=== PATIENT | female | born 1995 | race Caucasian/White ===

== ENCOUNTER 2017-08-15 18:56 | Day surgery (SDC) | payer OTHER ==
[2017-08-15 19:27] VITALS: BMI 30.9
[2017-08-15] MEDS ORDERED: Promethazine HCl 25 MG/ML VIAL IM/IV PRN (19:42)
--- NOTE | 2017-08-15 19:44 | PDOC.LDHP ---
Labor and Delivery H&P Chief complaint: other (spotting at 31 weeks 3 days, nausea) HPI: [address] mane here for spotting after wiping with tissue paper. No recent sex or trauma. No real contractions. No dysuria. Some nausea but no emesis. Denies fevers. no HAs, no fevers. Review of Systems: Complete ROS done and as per HPI Current gestational age (weeks): 31 (3 days) Due date: 10/12/17 Dating criteria: last menstrual period Grav: 1 Para: 0 Current complications: none Abnormal US findings: No Current medications: none Previous surgical history: none Allergies/Adverse Reactions: Allergies Allergy/AdvReac Type Severity Reaction Status Date / Time Penicillins Allergy Verified 08/15/17 19:29 - Physical Exam Vital signs reviewed and normal: yes General: NAD Heart: RRR Lungs: CTAB Abdomen: gravid Extremeties: no edema FHT: category 1 [place] contractions every: irritability - Assessment Spotting at 31 weeks, nausea. - Plan Plan: observation in L&D (I have ordered CMP and LR 1 liter bolus. Cervix check pending. Phenergan prn. No acute distress at this time. Follow. Monitors.)
[2017-08-15] MEDS ORDERED: Lactated Ringer's 1,000 ML IV SCH (20:00)
[2017-08-15 20:38] LABS: ALT (SGPT) 17 U/L (8-55); AST (SGOT) 20 U/L (5-34); Albumin 3.5 g/dL (3.5-5.0); Alkaline Phosphatase 95 U/L (40-150); Anion Gap 13 mmol/L (10-20); BUN (Urea Nitrogen) 6 mg/dL (7.0-18.7); Bilirubin, Total 1.6 mg/dL (0.2-1.2); Calc. Creatinine Clearance 182 mL/min (70-130); Carbon Dioxide 21 mmol/L (22-29); Chloride 105 mmol/L (98-107); Estimated GFR-MDRD Greater than 90; Globulin 3.2 g/dL (2.4-3.5); Glucose 81 mg/dL (70-105); Potassium 3.8 mmol/L (3.5-5.1); Protein, Total 6.7 g/dL (6.0-8.3); Sodium 135 mmol/L (136-145)
--- NOTE | 2017-08-15 20:45 | PDOC.EVN ---
Event Note - Event Note Event Note: CMP wnl. OK for outpatient care after liter complete
== END 2017-08-15 21:05 | disposition home or self-care (01) ==
LOC: L&D/OP 18:56
PROVIDERS: ATTEND Obstetrics & Gynecology
DX: O26.853 Spotting complicating pregnancy, third trimester (principal); O99.89 Other specified diseases and conditions complicating pregnancy, childbirth and the puerperium; R11.0 Nausea; Z3A.31 31 weeks gestation of pregnancy; Z88.0 Allergy status to penicillin
CPT/HCPCS: 80053

== ENCOUNTER 2017-09-13 13:04 | Inpatient (IN) | payer OTHER ==
[2017-09-13 13:29] VITALS: BMI 31.7
--- NOTE | 2017-09-13 14:14 | PDOC.LDHP ---
Labor and Delivery H&P Chief complaint: contractions HPI: 21 yo WF presents c/o UCs since 9:30 AM. Denies SROM or bleeding. Current gestational age (weeks): 35 Due date: 10/12/17 Grav: 1 Para: 0 OB History Details: PNC with Dr. Gil w/o complications Current complications: none Abnormal US findings: No Past Medical History: none Current medications: pre- vitamins Previous surgical history: other (T&A, tubes in ears) Allergies/Adverse Reactions: Allergies Allergy/AdvReac Type Severity Reaction Status Date / Time Penicillins Allergy Rash Verified 09/13/17 13:29 Social history: none - Physical Exam Vital signs reviewed and normal: yes General: breathing through contractions Lungs: nonlabored breathing Abdomen: gravid Extremeties: trace edema FHT: category 1 [place] contractions every: UCs q 5 mins - Vaginal Exam cm dilated: 1 Effacement: 75% Station: -1 - OB Labs Blood type: A RH: positive Antibody Screen: negative HIV: negative RPR: negative HEPSAg: negative 1 hour GCT: negative GBS: unknown Rubella: immune - Assessment 35 6/7 week IUP with UCs - Plan Plan: other (Hydrate and sedate Watch carefully)
[2017-09-13] MEDS ORDERED: Lactated Ringer's 1,000 ML IV SCH (14:15)
[2017-09-13] MEDS: Lactated Ringer's 1,000 ML IV SCH ×3 (14:35→23:04)
[2017-09-13] MEDS: Butorphanol Tartrate 1 MG/ML VIAL SLOW IVP PRN ×3 (14:46→18:28)
[2017-09-13] MEDS ORDERED: Betamet Acet/Betamet Na Ph 30 MG/5 ML VIAL ONE (15:42)
[2017-09-13] MEDS ORDERED: Ibuprofen 800 MG TAB PO PRN (15:48)
[2017-09-13] MEDS ORDERED: HYDROcodone/Acetaminophen 5/325 mg Tablet PO PRN ×2 (15:48)
[2017-09-13] MEDS ORDERED: Lidocaine 1% (PF) 30 ML VIAL SC PRN (15:48)
--- NOTE | 2017-09-13 15:48 | PDOC.EVN ---
Event Note - Event Note Event Note: Continues to c/o contractions despite IV and stadol. SVE by me now /-1, vtx. UCs q 3-5 mins seen. A: PTL at 35 6/7 weeks. Plan: Steroids for FLM, Ancef for unknown GBS status, and trial of Procardia 20 mg Q 6 hrs
[2017-09-13] MEDS ORDERED: Promethazine HCl 25 MG/ML VIAL IM PRN ×2 (15:49→20:11)
[2017-09-13] MEDS ORDERED: Zolpidem Tartrate 5 MG TAB PO PRN (15:49)
[2017-09-13] MEDS ORDERED: Betamet Acet/Betamet Na Ph 30 MG/5 ML VIAL IM SCH (16:00)
[2017-09-13 16:26] LABS: Hemoglobin 10.8 g/dL (12.0-16.0); Mean Corpuscular HGB CONC 34.9 g/dL (32.0-36.0); Mean Corpuscular Volume 85.9 fL (78.0-98.0); Mean Platelet Volume 8.2 fL (7.4-10.4); Platelet Count 235 thou/uL (130-400); White Blood Cell (WBC) Count 11.3 thou/uL (4.8-10.8)
[2017-09-13] MEDS: CEFAZOLIN 1 GM in Sodium Chloride 0.9% 100 ML IVPB SCH (16:52)
[2017-09-13] MEDS ORDERED: NIFEdipine 10 MG CAP PO SCH (17:00)
[2017-09-13 17:03] LABS: HBSAg Index 0.18 S/CO (0-0.99); Hep B Surf Ag Non-Reactive S/CO (NonReactive); Syphilis Antibody Nonreactive (Nonreactive); Syphilis Antibody Index 0.05 S/CO (<1.00 Non-Reactive)
[2017-09-13] MEDS: Ondansetron HCl/PF 4 MG/2 ML Vial IVP PRN (17:49)
[2017-09-13] MEDS ORDERED: DISCONTINUE ALL PREVIOUS NARCOTICS FS SCH (18:15)
[2017-09-13] MEDS ORDERED: Butorphanol Tartrate 1 MG/ML VIAL ONE (18:27)
--- NOTE | 2017-09-13 19:45 | PDOC.EVN ---
Event Note - Event Note Event Note: Crying with contractions. SVE per Labor RN is 4/80/-1, vtx. FHTs are reassuring. UCs seen q 3 mins. Plan: Epidural now. DC Procardia. Cont. Ancef for unknown GBS status. Will try to get 2nd dose of steroids on board 12 hrs from 1st dose.
[2017-09-13] MEDS ORDERED: Ondansetron HCl/PF 4 MG/2 ML Vial IVP PRN (20:11)
[2017-09-13] MEDS ORDERED: Lactated Ringer's 500 ML IV PRN (20:11)
[2017-09-13] MEDS ORDERED: Eucerin (Mineral Oil/Petrolatum,White) 30 gm Jar TOP PRN (20:11)
[2017-09-13] MEDS ORDERED: Naloxone HCl 0.4 mg/ml Vial IVP PRN ×2 (20:11)
[2017-09-13] MEDS ORDERED: Acetaminophen 325 MG TAB PO PRN (20:11)
[2017-09-13] MEDS ORDERED: diphenhydrAMINE 50 MG/ML VIAL IVP PRN (20:11)
[2017-09-13] MEDS ORDERED: ePHEDrine/0.9% NaCl/PF SYRINGE 50 mg/10 ml SLOW IVP PRN (20:11)
[2017-09-13] MEDS ORDERED: Communication Order-Pharmacy FS SCH (20:15)
[2017-09-13] MEDS ORDERED: Fentanyl 4mcg/Marcaine 0.1% Cassette 100 ML EPIDURAL SCH (20:15)
[2017-09-13] MEDS: Bupivacaine 0.75% 13.4 ML, fentaNYL Citrate/PF 400 MCG in Sodium Chloride 0.9% 78.6 ML EPIDURAL SCH (20:18)
--- NOTE | 2017-09-13 23:27 | PDOC.LDPN ---
Labor & Delivery Progress Note - Subjective Subjective: comfortable - Objective Vital signs reviewed and normal: yes General: resting Uterine fundus: palpable contractions Dilation: 6 Effacement: 90% Station: -1 FHT: variability present [place] contractions every: q 3 mins. Plan: continue plan of care (Cont. Ancef for unknown GBS, will try for 2nd dose of steroids)
[2017-09-14] MEDS: CEFAZOLIN 1 GM in Sodium Chloride 0.9% 100 ML IVPB SCH
--- NOTE | 2017-09-14 00:49 | PDOC.EVN ---
Event Note - Event Note Event Note: C/o pressure. SVE 8-9 cm, BBOW, vtx. FHTs stable. UCs q 2-3 mins. AROM- clear fluid. Expect .
[2017-09-14] MEDS: Ondansetron HCl/PF 4 MG/2 ML Vial IVP PRN (01:55)
[2017-09-14] MEDS: Bupivacaine 0.75% 13.4 ML, fentaNYL Citrate/PF 400 MCG in Sodium Chloride 0.9% 78.6 ML EPIDURAL SCH (02:00)
--- NOTE | 2017-09-14 02:47 | PDOC.OPDEL ---
OB Operative/Delivery Note Delivery Dr/Surgeon: iDlip Pre-Delivery Diagnosis: active labor Procedure/Post Delivery Dx: spontaneous vaginal delivery Weeks gestation: 36 Anesthesia: epidural - Additional Findings/Plan Placenta delivered: spontaneous Repaired Obstetrical Laceration: 2nd degree Estimated blood loss: 350 cc Compilations/Other Findings: Viable male Apgars 8/9 OA over small 2* MLE Repaired in layers. Peds present to assess. Placenta c/w marginal abruptio. Post delivery plan: routine recovery
[2017-09-14] MEDS: NS / Oxytocin 40 units/1000ml 1,000 ML IV PRN ×2 (03:25→05:00)
[2017-09-14] MEDS ORDERED: Zolpidem Tartrate 5 MG TAB PO PRN (06:23)
[2017-09-14] MEDS ORDERED: diphenhydrAMINE 25 MG CAP PO PRN (06:23)
[2017-09-14] MEDS ORDERED: Adacel (T-DAP) 0.5 ML VIAL IM ONE (06:23)
[2017-09-14] MEDS ORDERED: Preparation H Ointment 28 GM TUBE PR PRN (06:23)
[2017-09-14] MEDS ORDERED: Misoprostol 200 MCG TAB VAG SCH (06:23)
[2017-09-14] MEDS ORDERED: Bisacodyl 10 MG SUPP PR PRN (06:23)
[2017-09-14] MEDS ORDERED: Milk Of Magnesia 30 ML UDCUP PO PRN (06:23)
[2017-09-14] MEDS ORDERED: NS / Oxytocin 40 units/1000ml 1,000 ML IV SCH (06:23)
[2017-09-14] MEDS ORDERED: HYDROcodone/Acetaminophen 5/325 mg Tablet PO PRN ×2 (06:23)
[2017-09-14] MEDS: Ferrous Sulfate 325 MG TAB PO SCH ×2 (07:21→15:11)
[2017-09-14] MEDS ORDERED: Docusate Calcium (SURFAK) 240 MG CAP PO SCH (09:00)
--- NOTE | 2017-09-14 12:21 | PDOC.PP ---
Post Progress Note Post Day #: 0-1 PO intake tolerated: yes Flatus: yes Ambulation: yes Vital Signs (12 hours) Temp Pulse Resp BP BP 09/14/17 11:26 97.9 F 76 20 114/56 L 09/14/17 08:00 98.5 F 75 20 09/14/17 07:53 98.5 F 75 20 117/61 09/14/17 07:00 98.6 F 66 18 09/14/17 06:23 98.6 F 66 18 112/67 09/14/17 05:30 98.6 F 66 18 09/14/17 04:00 78 18 119/66 Weight Weight 185 lb - Physical Examination General: NAD Cardiovascular: no m/r/g, RRR Respiratory: clear to auscultation bilaterally, non-labored breathing Abdominal: + bowel sounds, lochia, no distention, appropriately TTP Result Diagrams: 09/13/17 16:12 Additional Labs: Post Labs Blood Type A POSITIVE 09/13/17 16:12 Hep Bs Antigen Non-Reactive S/CO (NonReactive) 09/13/17 16:12 - Assessment/Plan post day 0-1. at 36 weeks. doing well.D/c in AM.
[2017-09-14] MEDS ORDERED: Bupivacaine/Epinephrine 0.25% 30 ML VIAL ONE (17:44)
[2017-09-14] MEDS: Ibuprofen 100 MG/5 ML UDCUP PO PRN (22:37)
[2017-09-15 04:55] LABS: Hemoglobin 8.6 g/dL (12.0-16.0); Mean Corpuscular HGB CONC 33.7 g/dL (32.0-36.0); Mean Corpuscular Hemoglobin 29.9 pg (27.0-31.0); Mean Corpuscular Volume 88.9 fL (78.0-98.0); Mean Platelet Volume 8.1 fL (7.4-10.4); Platelet Count 217 thou/uL (130-400); RBC Distribution Width 12.2 % (11.5-14.5); Red Blood Cell (RBC) Count 2.87 mill/uL (4.20-5.40); White Blood Cell (WBC) Count 14.3 thou/uL (4.8-10.8)
[2017-09-15] MEDS: Ibuprofen 100 MG/5 ML UDCUP PO PRN ×2 (04:57→13:08)
--- NOTE | 2017-09-15 07:19 | PDOC.PP ---
Post Progress Note Post Day #: 1 Subjective: Working with breast feeding. doing better but needs improvement. PO intake tolerated: yes Flatus: yes Ambulation: yes Vital Signs (12 hours) Temp Pulse Resp BP BP Pulse Ox 09/15/17 01:40 98.6 F 89 20 97/55 L 09/14/17 20:00 98.0 F 80 18 109/60 98 Weight Weight 185 lb - Physical Examination General: NAD Cardiovascular: no m/r/g, RRR Respiratory: clear to auscultation bilaterally, non-labored breathing Abdominal: + bowel sounds, lochia, no distention, appropriately TTP Result Diagrams: 09/15/17 04:34 Additional Labs: Post Labs Blood Type A POSITIVE 09/13/17 16:12 Hep Bs Antigen Non-Reactive S/CO (NonReactive) 09/13/17 16:12 - Assessment/Plan post day 1--36 week -primipara..d/c in am. continue working with breast feeding.
[2017-09-15] MEDS: Ferrous Sulfate 325 MG TAB PO SCH ×2 (09:36→18:41)
[2017-09-15] MEDS ORDERED: Benzocaine/Menthol 20-0.5% 60 ML CAN TOP PRN (22:41)
[2017-09-16] MEDS: Ibuprofen 100 MG/5 ML UDCUP PO PRN ×3 (02:38→16:15)
--- NOTE | 2017-09-16 07:33 | PDOC.PP ---
Post Progress Note Post Day #: 2-3 PO intake tolerated: yes Flatus: yes Ambulation: yes Vital Signs (12 hours) Temp Pulse Resp BP 09/15/17 22:00 98.4 F 81 20 127/63 Weight Weight 185 lb Result Diagrams: 09/15/17 04:34 Additional Labs: Post Labs Blood Type A POSITIVE 09/13/17 16:12 Hep Bs Antigen Non-Reactive S/CO (NonReactive) 09/13/17 16:12 - Assessment/Plan doing well. d/c home f/u 6 weeks.OTC liquid ibuprofen...
[2017-09-16 08:15] VITALS: BP 110/53; TEMP 98.5
[2017-09-16] MEDS: Ferrous Sulfate 325 MG TAB PO SCH ×2 (09:35→18:09)
== END 2017-09-16 19:36 | disposition home or self-care (01) | DRG 774 ==
LOC: L&D/OP 13:04 → L&D 15:57 → OBSVTOIN 15:57 → 3SW 09-14 05:27
PROVIDERS: ADMIT Obstetrics & Gynecology; ATTEND Obstetrics & Gynecology
PROC: 10E0XZZ Delivery of Products of Conception, External Approach (ICD-10-PCS; principal; 2017-09-14)
PROC: 0KQM0ZZ Repair Perineum Muscle, Open Approach (ICD-10-PCS; 2017-09-14)
DX: O60.14X0 Preterm labor third trimester with preterm delivery third trimester, not applicable or unspecified (principal); O45.93 Premature separation of placenta, unspecified, third trimester; Z37.0 Single live birth; Z3A.35 35 weeks gestation of pregnancy; O70.1 Second degree perineal laceration during delivery; O62.2 Other uterine inertia
CPT/HCPCS: 36415; 51702; 85027; 86780; 86850; 86900; 86901; 87340; 88307; 99285; J0595; J0690; J0702; J2001; J2405; J3010; J7050

== ENCOUNTER 2017-11-17 15:43 | Emergency (ER) | payer OTHER ==
[2017-11-17 16:17] LABS: #Eosinphils 0.1 thou/uL (0.0-0.7); #Lymphocytes 2.4 thou/uL (1.20-3.40); #Monocytes 0.3 thou/uL (0.11-0.59); #Neutrophils 2.6 thou/uL (1.40-6.50); %Basophils 0.3 % (0.0-1.0); %Eosinophils 1.3 % (0.0-10.0); %Monocytes 5.7 % (0.0-10.0); %Neutrophils 48.7 % (42.0-75.0); Hemoglobin 11.6 g/dL (12.0-16.0); Mean Corpuscular Hemoglobin 29.9 pg (27.0-31.0); Mean Corpuscular Volume 85.4 fL (78.0-98.0); Mean Platelet Volume 7.4 fL (7.4-10.4); Platelet Count 257 thou/uL (130-400); Red Blood Cell (RBC) Count 3.87 mill/uL (4.20-5.40); White Blood Cell (WBC) Count 5.4 thou/uL (4.8-10.8)
--- NOTE | 2017-11-17 16:52 | ULT ---
ULTRASOUND GALLBLADDER RIGHT UPPER QUADRANT 11/17/17 HISTORY: Right upper quadrant pain. COMPARISON: None. TECHNIQUE: Real time gambino scale and color evaluation of the right upper quadrant of the abdomen is performed. The visualized portion of the aorta and IVC are unremarkable. Hepatic echotexture is increased. Liver measures 19.2 cm in length. No abnormal mass. Portal vein is patent. Antegrade flow. Common bile lras t measures 6 mm. Areas of cholelithiasis. The gallbladder wall thickness is normal. No pericholecysti c fluid. Right kidney measures 9.6 x 3.4 x 5.2 cm without mass, hydronephrosis or abnormal calcifications. IMPRESSION: 1. Cholelithiasis without evidence of cholecystitis. 2. Common bile duct upper limits of normal without visualized choledocholithiasis. 3. Increased hepatic echotexture consistent with hepatic steatosis. POS: [facility]
--- NOTE | 2017-11-17 16:54 | RAD ---
PORTABLE AP CHEST X-RAY 11/17/17 HISTORY: Lower back pain. Sharp substernal and epigastric pain. COMPARISON: 11/12/16. FINDINGS: The cardiac silhouette and pulmonary vasculature are within normal limits. The lungs are clear. There has been no interval change from prior study. IMPRESSION: No acute cardiopulmonary process. POS: [facility]
[2017-11-17 17:05] LABS: ALT (SGPT) 21 U/L (8-55); AST (SGOT) 37 U/L (5-34); Albumin 4.4 g/dL (3.5-5.0); Alkaline Phosphatase 99 U/L (40-150); Anion Gap 14 mmol/L (10-20); BUN (Urea Nitrogen) 12 mg/dL (7.0-18.7); Bilirubin, Total 1.9 mg/dL (0.2-1.2); Calc. Creatinine Clearance 0 mL/min (70-130); Calcium 9.7 mg/dL (7.8-10.44); Carbon Dioxide 23 mmol/L (22-29); Chloride 107 mmol/L (98-107); Estimated GFR-MDRD Greater than 90; Globulin 3.3 g/dL (2.4-3.5); Glucose 91 mg/dL (70-105); Lipase 32 U/L (8-78); Potassium 3.7 mmol/L (3.5-5.1); Protein, Total 7.7 g/dL (6.0-8.3); Sodium 140 mmol/L (136-145)
[2017-11-17] MEDS ORDERED: Mag-Al 1200 mg/1200 mg/30 ML UDCUP ONE (17:24)
[2017-11-17] MEDS ORDERED: Lidocaine Viscous Sol 2% 15 ml UD Cup ONE (17:24)
[2017-11-17] MEDS ORDERED: Pantoprazole 40 MG VIAL ONE (17:24)
[2017-11-17 17:34] LABS: Bilirubin Negative (Negative); Blood, Urine Negative (Negative); Clarity CLEAR (Clear); Glucose, Urine (Dipstick) Negative (Negative); Leukocyte Negative (Negative); Nitrite Negative (Negative); Protein, Urine (Dipstick) Negative (Neg-Trace); Specific Gravity, Urine 1.019 (1.002-1.036); pH, Urine 7.5 (5.0-9.0)
[2017-11-17 17:35] LABS: Pregnancy Test - Urine (BHCG) Negative (Negative); Pregu Control Background? CLEAR/WHITE (CLR/WHITE); Pregu Control Bar Appear? YES (CONTROL BAR); Specific Gravity 1.019 (1.002-1.036)
--- NOTE | 2017-11-18 15:15 | EKG ---
Test Reason : EPIGASTROC Blood Pressure : / mmHG Vent. Rate : 063 BPM Atrial Rate : 063 BPM P-R Int : 110 ms QRS Dur : 092 ms QT Int : 422 ms P-R-T Axes : 054 063 042 degrees QTc Int : 431 ms Sinus rhythm with short SD Cannot rule out Anterior infarct , age undetermined Abnormal ECG Confirmed by KENY POOL DO ([id number]), general expeditor DEL SERRNAO ([id number] on 11/18/2017 3:14:40 PM Referred By: Confirmed By:KENY POOL DO
== END 2017-11-17 18:40 | disposition home or self-care (01) ==
LOC: ERS 15:43
DX: K80.20 Calculus of gallbladder without cholecystitis without obstruction (principal)
CPT/HCPCS: 36415; 71045; 76705; 80053; 81003; 81025; 83690; 85025; 93005; 96374; C9113

== ENCOUNTER 2017-11-19 17:40 | Observation (INO) | payer OTHER ==
[2017-11-19 18:31] LABS: #Eosinphils 0.1 thou/uL (0.0-0.7); #Monocytes 0.5 thou/uL (0.11-0.59); #Neutrophils 2.2 thou/uL (1.40-6.50); %Eosinophils 2.3 % (0.0-10.0); %Lymphocytes 41.3 % (21.0-51.0); %Monocytes 9.3 % (0.0-10.0); %Neutrophils 46.1 % (42.0-75.0); Hemoglobin 11.7 g/dL (12.0-16.0); Mean Corpuscular HGB CONC 34.7 g/dL (32.0-36.0); Mean Corpuscular Hemoglobin 29.9 pg (27.0-31.0); Mean Corpuscular Volume 86.3 fL (78.0-98.0); Mean Platelet Volume 7.1 fL (7.4-10.4); Platelet Count 273 thou/uL (130-400); RBC Distribution Width 12.1 % (11.5-14.5); White Blood Cell (WBC) Count 4.9 thou/uL (4.8-10.8)
[2017-11-19 18:51] LABS: ALT (SGPT) 150 U/L (8-55); AST (SGOT) 112 U/L (5-34); Albumin 4.2 g/dL (3.5-5.0); Alkaline Phosphatase 197 U/L (40-150); Anion Gap 11 mmol/L (10-20); BUN (Urea Nitrogen) 9 mg/dL (7.0-18.7); Bilirubin, Total 5.2 mg/dL (0.2-1.2); Calc. Creatinine Clearance 0 mL/min (70-130); Calcium 9.5 mg/dL (7.8-10.44); Carbon Dioxide 24 mmol/L (22-29); Chloride 107 mmol/L (98-107); Estimated GFR-MDRD 87; Globulin 3.1 g/dL (2.4-3.5); Glucose 92 mg/dL (70-105); Potassium 3.7 mmol/L (3.5-5.1); Protein, Total 7.3 g/dL (6.0-8.3); Sodium 138 mmol/L (136-145)
[2017-11-19 18:59] LABS: Bilirubin Negative (Negative); Blood, Urine Negative (Negative); Clarity CLEAR (Clear); Glucose, Urine (Dipstick) Negative (Negative); Leukocyte Negative (Negative); Nitrite Negative (Negative); Protein, Urine (Dipstick) Negative (Neg-Trace); Urobilinogen 0.2 mg/dL (0.2-1.0); pH, Urine 6.5 (5.0-9.0)
[2017-11-19 19:04] LABS: Pregnancy Test - Urine (BHCG) Negative (Negative); Pregu Control Background? CLEAR/WHITE (CLR/WHITE); Pregu Control Bar Appear? YES (CONTROL BAR); Specific Gravity 1.004 (1.002-1.036); Specific Gravity, Urine 1.004 (1.002-1.036)
[2017-11-19] MEDS ORDERED: HYDROcodone/Acetaminophen 5/325 mg Tablet ONE (19:28)
[2017-11-19] MEDS ORDERED: Ondansetron HCl/PF 4 MG/2 ML Vial ONE ×2 (19:28→22:00)
--- NOTE | 2017-11-19 21:18 | ULT ---
SONOGRAM RIGHT UPPER QUADRANT 11/19/17 HISTORY: Right upper quadrant pain. FINDINGS: Multiple small shadowing stones are apparent within the dependent portion of the gallbladder lumen. N o gallbladder wall thickening or pericholecystic fluid. Gallbladder measures up to 8.9 cm in length. Patient was reportedly tender over the gallbladder fossa at the time of the exam. Common duct is 0.6 cm. Liver is unremarkable without focal mass or intrahepatic biliary dilatation. No free fluid. IMPRESSION: Cholelithiasis. Findings of acute cholecystitis include positive sonographic Maradiaga's sign and gallbl adder distention. Clinical correlation regarding other signs and symptoms of acute cholecystitis is r equired. POS: [facility]
[2017-11-20] MEDS: Sodium Chloride 0.9% 1,000 ML IV SCH ×2 (00:09→07:20)
--- NOTE | 2017-11-20 07:30 | CON ---
DATE OF CONSULTATION: 11/20/2017 HISTORY OF PRESENT ILLNESS: Patient is a 21-year-old female, who reports a week history of right upper quadrant pain, radiating through to the back. It was associated with nausea and vomitin g. Three days ago, it significantly worsened, and she sought care in the emergency room. At that ti me, the patient underwent an abdominal ultrasound, which showed cholelithiasis without evidence of ch olecystitis, CBD of 6 mm, and increased hepatic echo texture consistent with fatty liver. Apparently , she was sent home, and returned and underwent another abdominal ultrasound, which showed cholelithi asis, CBD of 6 mm, and gallstones. PAST MEDICAL HISTORY: None. PAST SURGICAL HISTORY: Includes a tonsillectomy. ALLERGIES: PENICILLIN. HOME MEDICATIONS: None. SOCIAL HISTORY: She does not smoke. Drinks rarely. FAMILY HISTORY: Negative for GI or liver disease. REVIEW OF SYSTEMS: Ten systems were reviewed and were negative except for above. PHYSICAL EXAMINATION: GENERAL: Shows overweight female. VITAL SIGNS: Temperature 98.1, pulse 53, respiratory rate 16, blood pressure 114/71. HEENT: Shows scleral icterus. NECK: Supple. CHEST: Clear. CARDIOVASCULAR: Regular rate and rhythm. ABDOMEN: Soft, tender in the right upper quadrant without rebound or guarding. Bowel sounds are pre sent. RECTAL: Deferred. EXTREMITIES: Normal. NEUROLOGIC: Nonfocal. LABORATORY DATA: Laboratories were noted to be elevated; initially, a total bilirubin of 1.9 and AST of 37; now, total bilirubin is 5.2, AST 112, ALT of 150. ASSESSMENT: 1. Cholelithiasis. 2. Probable choledocholithiasis. RECOMMENDATIONS: 1. ERCP. 2. Surgical opinion.
--- NOTE | 2017-11-20 09:19 | HP ---
DATE OF ADMISSION: 11/20/2017 HISTORY OF PRESENT ILLNESS: This is a 21-year-old white female, who presents with abdominal pain. T he patient was doing well until approximately 1 week ago began developing abdominal pain. Three days prior, on Thursday, her abdominal pain became much more severe to the point where she presented to [facility] emergency room. She was very short of breath, also. Ultrasound was performed, which revealed chol elithiasis, but no evidence of acute cholecystitis. However, yesterday, on , the pain return ed and the patient was admitted for further evaluation. PAST MEDICAL HISTORY: Unremarkable. PAST SURGICAL HISTORY: T and A, PE tubes, spontaneous vaginal delivery x1, 2 months now. ALLERGIES: None. FAMILY HISTORY: Unremarkable except that mother and maternal grandmother both had their gallbladders taken out. No family history of cancers or diabetes. SOCIAL HISTORY: She is . She lives with her and her 2-month-old baby. She does not smoke. Drinks rarely. REVIEW OF SYSTEMS: As above. PHYSICAL EXAMINATION: VITAL SIGNS: Temperature 97.4, pulse 54, respirations 16, pulse ox 97, blood pressure 107/72. GENERAL: In no acute distress at this time. HEENT: Clear. HEART: Regular rate and rhythm. LUNGS: Clear. ABDOMEN: Soft, nontender. EXTREMITIES: With no edema. LABORATORY AND X-RAY FINDINGS: White count 4.9, H and H 11 and 33. Electrolytes normal. AST 112, A LT 150, alkaline phosphatase 197, lipase 26. ASSESSMENT: 1. Abdominal pain secondary to cholelithiasis, rule out cholecystitis. 2. Cholelithiasis with choledocholithiasis. 3. Elevated liver function tests. PLAN: 1. Dr. Dee to perform an ERCP today. 2. We will also obtain a surgical consult.
[2017-11-20 09:43] LABS: #Eosinphils 0.1 thou/uL (0.0-0.7); #Lymphocytes 1.8 thou/uL (1.20-3.40); #Monocytes 0.4 thou/uL (0.11-0.59); #Neutrophils 1.6 thou/uL (1.40-6.50); %Eosinophils 1.9 % (0.0-10.0); %Monocytes 11.1 % (0.0-10.0); Hemoglobin 10.8 g/dL (12.0-16.0); Mean Corpuscular HGB CONC 34.2 g/dL (32.0-36.0); Mean Corpuscular Hemoglobin 29.8 pg (27.0-31.0); Mean Corpuscular Volume 87.2 fL (78.0-98.0); Mean Platelet Volume 7.6 fL (7.4-10.4); Platelet Count 201 thou/uL (130-400); RBC Distribution Width 12.2 % (11.5-14.5); Red Blood Cell (RBC) Count 3.63 mill/uL (4.20-5.40)
[2017-11-20 09:57] LABS: ALT (SGPT) 112 U/L (8-55); AST (SGOT) 68 U/L (5-34); Albumin 3.6 g/dL (3.5-5.0); Alkaline Phosphatase 169 U/L (40-150); Anion Gap 12 mmol/L (10-20); BUN (Urea Nitrogen) 7 mg/dL (7.0-18.7); Bilirubin, Total 4.7 mg/dL (0.2-1.2); Calc. Creatinine Clearance 145 mL/min (70-130); Calcium 8.8 mg/dL (7.8-10.44); Carbon Dioxide 20 mmol/L (22-29); Chloride 110 mmol/L (98-107); Estimated GFR-MDRD 89; Globulin 2.8 g/dL (2.4-3.5); Glucose 72 mg/dL (70-105); Lipase 22 U/L (8-78); Potassium 4.1 mmol/L (3.5-5.1); Protein, Total 6.4 g/dL (6.0-8.3); Sodium 138 mmol/L (136-145)
[2017-11-20] MEDS ORDERED: Lidocaine 1% PF 5 ML VIAL ONE (11:07)
[2017-11-20] MEDS ORDERED: PROPOFOL 200 MG/20 ML VIAL ONE (11:07)
[2017-11-20] MEDS ORDERED: Succinylcholine Chloride 20 MG/ML 10 ml SYRINGE FS ONE (11:07)
[2017-11-20] MEDS ORDERED: Ondansetron HCl/PF 4 MG/2 ML Vial ONE (13:47)
[2017-11-20] MEDS ORDERED: Midazolam HCl 2 mg/2 ml Vial ONE ×2 (13:55→14:29)
[2017-11-20] MEDS ORDERED: Indomethacin 50 MG SUPP ONE (14:23)
[2017-11-20] MEDS ORDERED: Iothalamate Meglumine 60% 50 ML VIAL FS ONE (14:23)
[2017-11-20] MEDS ORDERED: Fentanyl 100 MCG/2 ML VIAL ONE (14:29)
[2017-11-20] MEDS ORDERED: Promethazine HCl 25 MG/ML VIAL IM PRN (15:37)
[2017-11-20] MEDS ORDERED: Promethazine HCl 25 MG/ML VIAL SLOW IVP PRN (15:37)
[2017-11-20] MEDS ORDERED: Ondansetron HCl/PF 4 MG/2 ML Vial IVP PRN (15:37)
[2017-11-20] MEDS ORDERED: Meperidine HCl/PF 25 MG/ML VIAL SLOW IVP PRN (15:37)
[2017-11-20] MEDS ORDERED: Promethazine HCl 25 MG/ML VIAL ONE (16:04)
--- NOTE | 2017-11-20 16:47 | RAD ---
ERCP: Date: 11/20/17 HISTORY: Cholelithiasis/cholecystitis. FINDINGS/IMPRESSION: Two intraoperative fluoroscopic images from ERCP are submitted for interpretation. Images demonstrate a catheter in place within the common duct. The common duct is not well opacified on provided images . There is no intrahepatic biliary ductal dilatation or dilatation of the common duct. Second provide d image does demonstrate filling defects within the common duct, which could be related to either judi culus or air bubbles. There is contrast overlying the right upper quadrant, probably related to contrast within the gallbla dder. Filling defects are also seen within the gallbladder, which may be related to cholelithiasis. C orrelation with intraoperative findings is recommended. POS: [facility]
--- NOTE | 2017-11-20 17:51 | OP ---
PREOPERATIVE DIAGNOSIS: Obstructive jaundice. DESCRIPTION OF PROCEDURE: After informed consent was obtained, the patient was placed in the left la teral decubitus position. Anesthesia administered per the Anesthesia Department. Forward-viewing en doscope was inserted into the esophagus under direct visualization with ease and passed to the second portion of the duodenum with ease. Second portion of the duodenum was normal. No mucosal abnormali ties were noted. Tapered-tip cannula was inserted into the common duct and cholangiogram showed poss ible filling defect. A sphincterotomy was performed and the duct was swept. No stones were revealed . Occlusion cholangiogram showed no filling defects at the end of the procedure. ASSESSMENT: 1. Choledocholithiasis - the stone may have passed at the time of the procedure. 2. Status post sphincterotomy. RECOMMENDATION: Recheck LFTs.
[2017-11-21 04:21] LABS: #Eosinphils 0.1 thou/uL (0.0-0.7); #Lymphocytes 2.1 thou/uL (1.20-3.40); #Monocytes 0.5 thou/uL (0.11-0.59); #Neutrophils 2.3 thou/uL (1.40-6.50); %Basophils 0.8 % (0.0-1.0); %Eosinophils 1.1 % (0.0-10.0); %Lymphocytes 42.7 % (21.0-51.0); %Monocytes 9.4 % (0.0-10.0); Hemoglobin 11.6 g/dL (12.0-16.0); Mean Corpuscular HGB CONC 34.6 g/dL (32.0-36.0); Mean Corpuscular Hemoglobin 29.9 pg (27.0-31.0); Mean Corpuscular Volume 86.4 fL (78.0-98.0); Mean Platelet Volume 7.6 fL (7.4-10.4); Platelet Count 247 thou/uL (130-400); RBC Distribution Width 12.1 % (11.5-14.5); Red Blood Cell (RBC) Count 3.88 mill/uL (4.20-5.40); White Blood Cell (WBC) Count 4.9 thou/uL (4.8-10.8)
[2017-11-21 04:42] LABS: ALT (SGPT) 99 U/L (8-55); AST (SGOT) 56 U/L (5-34); Albumin 3.6 g/dL (3.5-5.0); Alkaline Phosphatase 172 U/L (40-150); Anion Gap 17 mmol/L (10-20); BUN (Urea Nitrogen) 9 mg/dL (7.0-18.7); Calc. Creatinine Clearance 147 mL/min (70-130); Calcium 9.1 mg/dL (7.8-10.44); Carbon Dioxide 16 mmol/L (22-29); Chloride 107 mmol/L (98-107); Estimated GFR-MDRD Greater than 90; Globulin 2.8 g/dL (2.4-3.5); Glucose 64 mg/dL (70-105); Potassium 3.8 mmol/L (3.5-5.1); Protein, Total 6.4 g/dL (6.0-8.3); Sodium 136 mmol/L (136-145)
[2017-11-21 04:46] LABS: ALT (SGPT) 101 U/L (8-55); AST (SGOT) 55 U/L (5-34); Albumin 3.6 g/dL (3.5-5.0); Alkaline Phosphatase 172 U/L (40-150); Bilirubin, Direct 1.6 mg/dL (0.1-0.3); Protein, Total 6.5 g/dL (6.0-8.3)
[2017-11-21 04:55] LABS: Lipase 1168 U/L (8-78)
--- NOTE | 2017-11-21 07:18 | CON ---
DATE OF CONSULTATION: 11/21/2017 CHIEF COMPLAINT: Abdominal pain. HISTORY OF PRESENT ILLNESS: Ms. Wei is a 21-year-old woman who presented to the hospital with a 1 week history of abdominal pain. This had been slowly worsening to the point she came into the emerg ency room on Thursday. She was diagnosed with cholelithiasis but sent home. She returned on due to worsening pain and was admitted due to an elevated bilirubin. On Thursday, Dr. Dee took her t o the operating room for an ERCP and sphincterotomy and stone extraction, which was successful. She is feeling better since the ERCP. The pain is located in her right upper quadrant and radiates to he r back and she had nausea and vomiting associated with that which was nonbloody. Currently, she is p ain free however. She did not have any fevers or chills and had not noticed any jaundice or icterus. PAST MEDICAL HISTORY: None. PAST SURGICAL HISTORY: Ear tubes and adenoid surgery. FAMILY HISTORY: Family history of gallstone disease. SOCIAL HISTORY: She is 2 months and does not smoke or use illicit drugs. She drinks rare ly and lives with her and baby. REVIEW OF SYSTEMS: Ten-system review of systems is negative except per HPI. PHYSICAL EXAMINATION: VITAL SIGNS: The patient has been afebrile through her hospital stay. Heart rate has been in the 50 s to 70s, respirations 15-18, 97%-98% saturated on room air, blood pressure 107/67. GENERAL: Reveals a healthy appearing young woman in no acute distress. She is not flushed or toxic in appearance. She is not jaundiced or icteric. HEENT: Unremarkable. NECK: Supple, without lymphadenopathy or thyroid nodules. HEART: Regular in its rate and rhythm without murmurs, rubs or gallops. LUNGS: Clear to auscultation bilaterally. ABDOMEN: Soft, nontender, nondistended, without palpable masses or hernias. EXTREMITIES: Warm and well perfused. NEUROLOGIC: No focal deficits. PSYCHIATRIC: Alert, oriented, and appropriate. LABORATORY DATA: White count is normal, hematocrit 33, platelets normal. Bilirubin was very elevate d on admission at 5.2, AST and ALT 112 and 150, and alkaline phosphatase 197. Electrolytes were unre markable. Following her ERCP, her total bilirubin is now 4 with a direct component of 1.6, AST and A LT have fallen to 55 and 101 and alkaline phosphatase is down to 172. Lipase is slightly elevated at 1168. Abdominal ultrasound done on admission showed cholelithiasis and a positive sonographic Darin y sign, but no gallbladder wall thickening or pericholecystic fluid and a common bile duct of 6 mm, w hich is toward the upper limit of normal. ASSESSMENT: Cholelithiasis and choledocholithiasis. I have recommended laparoscopic cholecystectomy to prevent future episodes of choledocholithiasis. Her lipase is up a little bit this morning, but she was not having any abdominal pain overnight. She may need to be kept n.p.o. a little longer post operatively. The procedure of laparoscopic cholecystectomy and its inherent risks were discussed wit h patient. These risks include but are not limited to bleeding, infection, risks of anesthesia, jacqueline ge to nearby structures including bowel, liver and bile duct, need for other procedures, need for ope n surgery. She understands and accepts these risks and wishes to proceed. All of her questions were answered. She has an allergy to PENICILLIN, so levofloxacin has been ordered home connect lpn to the operati ng room. Thank you very much.
--- NOTE | 2017-11-21 08:42 | PRG ---
DATE OF SERVICE: 11/21/2017 SUBJECTIVE: The patient is having a little bit of pain. She has had no nausea or vomiting, no other complaints. She is ready for surgery. OBJECTIVE: VITAL SIGNS: Temperature 98.1, pulse 65, respiratory rate 16, blood pressure 96/57. CHEST: Clear. CARDIOVASCULAR: Regular rate and rhythm. ABDOMEN: Soft, tender in right upper quadrant without any rebound or guarding. Bowel sounds are pre sent and normoactive. LABORATORY DATA: Shows a total bilirubin of 4.0, AST 55, ALT of 101. Alkaline phosphatase 172. Lip ase was done and was 1168. ASSESSMENT: 1. Obstructive jaundice - the patient's bile duct was not enlarged and no obvious stones were noted. She did undergo a sphincterotomy and her numbers have not significantly changed. I doubt she has u nderlying liver disease and it may just take some time for the numbers to decrease. 2. Elevated lipase - maybe some mild post-endoscopic retrograde cholangiopancreatography pancreatiti s. RECOMMENDATIONS: 1. The patient to proceed with cholecystectomy. 2. Repeat numbers in a.m.
[2017-11-21] MEDS ORDERED: Levofloxacin 500 mg/D5W 100 ml Premix Bag ONE (09:02)
[2017-11-21] MEDS ORDERED: Midazolam HCl 2 mg/2 ml Vial ONE (09:18)
[2017-11-21] MEDS ORDERED: Bupivacaine/Epinephrine 0.25% 30 ML VIAL ONE (09:27)
[2017-11-21] MEDS ORDERED: Fentanyl 100 MCG/2 ML VIAL ONE ×2 (09:40→10:57)
[2017-11-21] MEDS ORDERED: Ondansetron HCl/PF 4 MG/2 ML Vial IVP PRN (10:31)
[2017-11-21] MEDS ORDERED: Promethazine HCl 25 MG/ML VIAL SLOW IVP PRN (10:31)
[2017-11-21] MEDS ORDERED: Promethazine HCl 25 MG/ML VIAL IM PRN (10:31)
[2017-11-21] MEDS ORDERED: SUGAMMADEX SODIUM 500 MG/5 ML VIAL ONE (10:40)
[2017-11-21] MEDS ORDERED: Promethazine HCl 25 MG/ML VIAL ONE (10:48)
[2017-11-21] MEDS ORDERED: HYDROcodone/Acetaminophen 5/325 mg Tablet PO PRN ×2 (11:04)
[2017-11-21] MEDS ORDERED: Ondansetron HCl/PF 4 MG/2 ML Vial SLOW IVP PRN (11:07)
[2017-11-21] MEDS: Sodium Chloride 0.9% 1,000 ML IV SCH ×2 (11:48→19:57)
[2017-11-21] MEDS ORDERED: Lidocaine 1% PF 5 ML VIAL ONE (15:01)
[2017-11-21] MEDS ORDERED: Glycopyrrolate 0.2 MG/ML 5 ML SYRINGE ONE (15:01)
[2017-11-21] MEDS ORDERED: PROPOFOL 200 MG/20 ML VIAL ONE (15:01)
[2017-11-21] MEDS ORDERED: Ketorolac Tromethamine 30 MG/ML VIAL ONE (15:01)
[2017-11-21] MEDS ORDERED: Dexamethasone 20 MG/5 ML VIAL ONE (15:01)
[2017-11-21] MEDS ORDERED: Ondansetron HCl/PF 4 MG/2 ML Vial ONE (15:01)
--- NOTE | 2017-11-21 16:03 | PDOC.OP ---
Operative Note - Operative Note Operative Note: PROCEDURE: Laparoscopic cholecystectomy SURGEON: iKnjal Naegl M.D. DATE OF PROCEDURE: 11/21/2017 PREOPERATIVE DIAGNOSIS: Cholelithiasis and cholecystitis POSTOPERATIVE DIAGNOSIS: Cholelithiasis and cholecystitis HISTORY: Patient with known cholelithiasis who came into the emergency room with acute elevation in her LFTs consistent with choledocholithiasis. She underwent ERCP with stone extraction by Dr. Dee yesterday and postoperatively was pain free. She is getting a laparoscopic cholecystectomy today to prevent future problems with her gallstones. FINDINGS: White walled gallbladder with multiple stones. PROCEDURE IN DETAIL: After informed consent was obtained and appropriate preoperative antibiotics were administered, the patient was taken to the operating room and placed in the supine position and general endotracheal anesthesia was administered. The stomach was decompressed with an OG tube and the abdomen was prepped and draped in standard sterile fashion. Local anesthesia was infused to the skin and subcutaneous tissues at the umbilical level. A transverse skin incision was made. The fascia was elevated and a Veress needle was placed into the abdominal cavity without difficulty. Opening pressure was less than 5 and carbon dioxide gas easily insufflated to an intra- abdominal pressure of 15, which the patient tolerated well. The Veress needle was withdrawn and a Balm port advanced under direct vision. The abdominal cavity was carefully examined. There was no evidence of Veress needle or of trocar injury. Local anesthesia was infused to the skin and subcutaneous tissues at the epigastric, right upper quadrant, and right lateral abdominal sites and trocars were placed under direct vision of the laparoscope. The fundus of the gallbladder was grasped and retracted superiorly. The infundibulum was grasped and retracted laterally. The serosa was stripped inferiorly at the level of the neck of the gallbladder exposing the cystic duct and artery which were traced clearly to their insertion in the gallbladder. Critical view of safety was obtained and the cystic duct and artery were clipped and divided between clips. The gallbladder was then dissected free of the gallbladder bed using hook electrocautery. Prior to complete removal of the gallbladder from the gallbladder bed, the area of the cystic duct and artery stumps was examined. The clips were in good position completely across these structures and there was no bleeding and no leakage of bile. The gallbladder was then placed into an EndoCatch bag and drawn out through the epigastric incision. The epigastric trocar was replaced and the operative site easily irrigated to clear. There was no significant bleeding or spillage of bile. The epigastric trocar was removed and the fascia closed under direct laparoscopic vision with a 0 Vicryl suture on a GraNee needle in a figure-of- eight manner with excellent technical result. The right upper quadrant and right lateral abdominal trocars were removed and hemostasis verified. Carbon dioxide gas was allowed to desufflate through the umbilical trocar which was then removed. The skin incisions were closed with 4-0 subcuticular Monocryl sutures and Dermabond dressings were placed. The patient was extubated and taken to the recovery room in good condition. There were no complications. ESTIMATED BLOOD LOSS: Minimal. SPECIMEN : Gallbladder and contents.
--- NOTE | 2017-11-21 22:39 | PRG ---
DATE OF SERVICE: 11/21/2017 SUBJECTIVE: Patient is doing well on postop day #0, status post laparoscopic cholecystectomy by Dr. Nagel. Procedure went without complication. Patient tonight is doing well. Minimal complaints of pain. Tolerating clear liquids, but states has not passed gas yet. OBJECTIVE: VITAL SIGNS: Temperature 98.7, pulse 74, respirations 16, pulse ox 97, blood pressure 103/65. HEART: Regular rate and rhythm. LUNGS: Clear. ABDOMEN: Soft. Decreased bowel sounds. ASSESSMENT: 1. Postop day #0, status post laparoscopic cholecystectomy. 2. Cholecystitis/choledocholithiasis/cholelithiasis. 3. Two months' . PLAN: 1. Continue hydration. 2. Pain control. 3. Repeat CBC, comprehensive, and lipase in the a.m. 4. Hopefully, can go home soon.
[2017-11-22 05:09] LABS: #Eosinphils 0.1 thou/uL (0.0-0.7); #Lymphocytes 2.1 thou/uL (1.20-3.40); #Monocytes 0.7 thou/uL (0.11-0.59); #Neutrophils 3.9 thou/uL (1.40-6.50); %Basophils 0.4 % (0.0-1.0); %Eosinophils 0.8 % (0.0-10.0); %Lymphocytes 31.2 % (21.0-51.0); %Monocytes 10.5 % (0.0-10.0); %Neutrophils 57.2 % (42.0-75.0); Hemoglobin 10.6 g/dL (12.0-16.0); Mean Corpuscular HGB CONC 34.2 g/dL (32.0-36.0); Mean Corpuscular Hemoglobin 29.9 pg (27.0-31.0); Mean Corpuscular Volume 87.3 fL (78.0-98.0); Mean Platelet Volume 7.4 fL (7.4-10.4); Platelet Count 236 thou/uL (130-400); RBC Distribution Width 12.3 % (11.5-14.5); Red Blood Cell (RBC) Count 3.55 mill/uL (4.20-5.40); White Blood Cell (WBC) Count 6.8 thou/uL (4.8-10.8)
[2017-11-22 05:38] LABS: ALT (SGPT) 95 U/L (8-55); AST (SGOT) 61 U/L (5-34); Albumin 3.3 g/dL (3.5-5.0); Alkaline Phosphatase 139 U/L (40-150); Anion Gap 13 mmol/L (10-20); BUN (Urea Nitrogen) 10 mg/dL (7.0-18.7); Bilirubin, Direct 1.3 mg/dL (0.1-0.3); Bilirubin, Total 2.5 mg/dL (0.2-1.2); Calc. Creatinine Clearance 118 mL/min (70-130); Calcium 8.7 mg/dL (7.8-10.44); Carbon Dioxide 21 mmol/L (22-29); Chloride 110 mmol/L (98-107); Estimated GFR-MDRD 71; Globulin 2.7 g/dL (2.4-3.5); Glucose 94 mg/dL (70-105); Lipase 41 U/L (8-78); Potassium 3.7 mmol/L (3.5-5.1); Sodium 140 mmol/L (136-145)
[2017-11-22 07:17] VITALS: BP 115/77; TEMP 98.2
[2017-11-22] MEDS: Sodium Chloride 0.9% 1,000 ML IV SCH (07:55)
--- NOTE | 2017-11-22 09:22 | DIS ---
DATE OF ADMISSION: 11/20/2017 DATE OF DISCHARGE: 11/22/2017 DISCHARGE DIAGNOSES: 1. Acute cholecystitis. 2. Cholelithiasis with choledocholithiasis. 3. Two months . DISCHARGE MEDICATIONS: Mellott p.o. q.4 hours p.r.n. #10. PROCEDURES: Laparoscopic cholecystectomy and ERCP. BRIEF HISTORY: This is a 21-year-old white female 2 months post-, admitted with abdominal pain , which began approximately 1 week prior. Over the past several days, the pain became progressively worse and she presented to the emergency room where she was found to have acute cholecystitis. HOSPITAL COURSE: The patient underwent a laparoscopic cholecystectomy yesterday by Dr. Nagel. The patient tolerated the procedure well. Her liver function tests have decreased. She is feeling much better this morning and ready for discharge. She will follow up with Dr. Nagel in 2 weeks and la paiz myself in 1 week.
== END 2017-11-22 10:34 | disposition home or self-care (01) ==
LOC: ERS 17:40 → T4-A 22:00
PROVIDERS: ADMIT Family Medicine; ATTEND Family Medicine
PROC: 0F798ZZ Dilation of Common Bile Duct, Via Natural or Artificial Opening Endoscopic (ICD-10-PCS; 2017-11-20)
PROC: 0FT44ZZ Resection of Gallbladder, Percutaneous Endoscopic Approach (ICD-10-PCS; principal; 2017-11-21)
DX: K80.67 Calculus of gallbladder and bile duct with acute and chronic cholecystitis with obstruction (principal); R79.89 Other specified abnormal findings of blood chemistry; Z88.0 Allergy status to penicillin
CPT/HCPCS: 36415; 74330; 76705; 80053; 80076; 81003; 81025; 83690; 85025; 88304; 96361; 96365; 96374; 96375; 96376; G0378; J1100; J1885; J1956; J2001; J2250; J2270; J2405; J2550; J2704; J3010; Q9961

== ENCOUNTER 2018-08-07 19:02 | Emergency (ER) | payer OTHER, SELFPAY | END 2018-08-07 19:31 | disposition home or self-care (01) | LOC: ERS 19:02 | DX: H60.91 Unspecified otitis externa, right ear (principal) | CPT/HCPCS: 99282 ==

== ENCOUNTER 2019-09-28 09:34 | Emergency (ER) | payer OTHER, SELFPAY ==
[2019-09-29 14:25] LABS: SARS-CoV-2 MS2 Positive; SARS-CoV-2 N Gene Negative; SARS-CoV-2 S Gene Negative; SARS-CoV-2 orf1ab Negative
== END 2019-09-28 10:34 | disposition home or self-care (01) ==
LOC: ERS 09:34
DX: R05 Cough (principal); R51 Headache; R19.7 Diarrhea, unspecified; Z20.828 Contact with and (suspected) exposure to other viral communicable diseases
CPT/HCPCS: 87635; 99284; U0003

== ENCOUNTER 2023-03-06 11:10 | Outpatient (CLI) | payer BC ==
[2023-03-06 11:56] LABS: BHCG - Serum Negative (NEGATIVE); Pregs Control Background? CLEAR/WHITE (CLR/WHITE); Pregs Control Bar Appear? YES (CONTROL BAR)
== END 2023-03-06 11:11 | disposition home or self-care (01) ==
LOC: RAD 11:10
PROVIDERS: ATTEND Obstetrics & Gynecology
DX: N97.9 Female infertility, unspecified (principal)
CPT/HCPCS: 58340; 74740; 84703